=== PATIENT | male | born 1995 ===

== ENCOUNTER → 2018-12-27 | Outpatient (CLI) | payer BC ==
--- NOTE | 2018-12-27 15:12 | Diagnostic Imaging Report ---
INDICATION: Bilateral breast lumps. COMPARISON: No prior mammograms are available for comparison. TECHNIQUE: 2D and 3D bilateral diagnostic mammography was performed with CAD. BB markers were placed at the areas of palpable abnormality in both breasts. FINDINGS: No suspicious abnormality is seen. No mass or malignant appearing microcalcifications are seen. Small lymph nodes in the left axilla are noted. IMPRESSION: No suspicious mammographic findings are identified. Even so, directed sonographic interrogation of the areas of palpable abnormality in both breasts is recommended and will be performed today. ACR BI-RADS Category 0: Incomplete. (Needs additional imaging evaluation). Result letter will be mailed to the patient. Note: At least 10% of breast cancer is not imaged by mammography. Dictated by: Dictated on workstation # [id number]
--- NOTE | 2018-12-27 15:56 | Diagnostic Imaging Report ---
INDICATION: Bilateral palpable lumps. COMPARISON: Correlation is made to the diagnostic mammogram from earlier this same day. FINDINGS: LEFT BREAST: Sonographic interrogation of the area of palpable abnormality was performed. This corresponds to approximately the 1 to 2 o'clock location 10 cm from the nipple. No sonographic abnormality is seen. No solid or cystic mass is identified. RIGHT BREAST: Sonographic interrogation of the Area of palpable abnormality was performed. This corresponds to the 10 o'clock location, 6 cm from the nipple. There is a 4 mm x 4 mm x 7 mm hypoechoic nodule with an echogenic center at this location, most consistent with an intraparenchymal lymph node. No other suspicious abnormality is seen. IMPRESSION: Essentially unremarkable bilateral breast ultrasound. No concerning findings are identified. Clinical followup is recommended. ACR BI-RADS Category 2: Benign findings. Dictated by: Dictated on workstation # [id number]
== END ==
LOC: RAD 13:04
PROVIDERS: ATTEND Pediatrics
DX: N63.12 Unspecified lump in the right breast, upper inner quadrant (principal); N63.11 Unspecified lump in the right breast, upper outer quadrant
CPT/HCPCS: 76642; 77066